=== PATIENT | female | born 1970 | race Caucasian/White ===

== ENCOUNTER 2016-10-11 14:04 | Emergency (ER) | payer OTHER ==
[~2016-10-11 14:04] MED LIST: ALBUTEROL2.5 MG/3 M INH/SOL; ATIVAN1 M1 PO; BACTRIM DS TAB1 EACH PO; CARAFATE1 GM/10 M1 PO; CIPRO500 M1 PO; DEXAMETHASONE2 M1 PO; KEFLEX500 M1 PO; MEDROL4 M2 PO; METHADONE10 MG/5 M2 PO; MORPHINE SULFAT30 M7 PO; Nebulizer machine; PAROXETINE HCL40 M1; PRAZOSIN HCL2 M1; PROAIR HFA8.5 GM INH
[2016-10-11 14:09] VITALS: BP 144/106
--- NOTE | 2016-10-11 14:19 | ED HEAD/FACIAL INJ COMPLAINT ---
History of Present Illness General Chief Complaint: Laceration Procedure Stated Complaint: LAC TO FORHEAD ABOVE LEFT EYE, DIZZY Source: patient, old records Exam Limitations: no limitations Vital Signs & Intake/Output Vital Signs & Intake/Output Vital Signs Date Time Temp Pulse Resp B/P B/P Pulse O2 O2 Flow FiO2 Mean Ox Delivery Rate 10/11 1409 97.7 81 18 144/106 97 Room Air Allergies Coded Allergies: Penicillins (PER PT UNKNOWN - WAS TOLD BAD HIVES A CHILD 01/08/16) Reconcile Medications Cephalexin (Keflex) 500 MG CAPSULE 1 CAP PO 4 TIMES/DAY foreign body Methadone HCl 10 MG/5 ML SOLUTION 65 MG PO DAILY MENTAL HEALTH (Reported) Paroxetine HCl (Unknown Strength) TABLET (Unknown Dose) UNKNOWN (Reported) Prazosin HCl (Unknown Strength) CAPSULE (Unknown Dose) UNKNOWN (Reported) Sulfamethoxazole/Trimethoprim (Bactrim Ds Tablet) 800 MG-160 MG TABLET 1 TAB PO BID infection prevention Triage Note: TRIAGE: PATIENT TO ER FROM HOME "WAS CLEANING A WINDOW AND THE GLASS FELL OUT ON ME AND SMACKED ME IN THE HEAD." 1 CM LAC NOTED TO ABOVE L EYEBROW, REPORTS +DIZZINESSAND "HAVE A MIGRAINE NOW." DENIES BLOODTHINNERS. Triage Nurses Notes Reviewed? yes Onset: Abrupt Severity: mild Severity Numbers: 4 Location: frontal Method of Injury: direct blow Loss of Consciousness: no loss of consciousness Associated Symptoms: denies HPI: 46-year-old female presents to ER for evaluation with family friends status post sustaining laceration to her left eyebrow just prior to arrival. She states that she was opening a window in an attempt to say hello to her friend outside when she states that the glass window pane fell out of the window striking her in the face. She did not fall to the ground there is a loss of consciousness. She denies any other injury. She is not taken anything. She states since then she's now complaining of a migraine-like headache and feeling dizzy. No nausea no vomiting. She denies any vision changes or eye pain. No other modifying factors or radiation of her pain She states she is up-to-date on her tetanus (RUSTY ENRIQUEZ,LYNDSEY) Past History Travel History Traveled to [place] past 21 day No Medical History Any Pertinent Medical History? 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 Granfather (Stomach Cancer). Hx Contributory? No (LYNDSEY BANDA) Review of Systems Review of Systems Constitutional: Reports: see HPI. All Other Systems: Reviewed and Negative Comments Review of systems: See HPI, All other systems negative. Constitutional, no chills no fever, no malaise HEENT: No visual changes no sore throat no congestion, Cardiovascular: No chest pain , no palpitation Skin: no rashes, no change in skin Respiratory: No dyspnea no cough no sputum GI: No nausea no vomiting, no diarrhea Muscle skeletal: No joint pain, no back pain, no neck pain, Neurologic: No numbness no headache Psych: No stress . Heme/endocrine: No bruising Immunology: No lymphadenopathy (LYNDSEY BANDA) Physical Exam Physical Exam General Appearance: well developed/nourished, alert, awake Cranial Nerves: normal hearing, normal speech, PERRL Comments: Well-developed well-nourished patient in no apparent distress. Head/Face: Superficial linear 0.5 cm laceration noted to the left lateral eyebrow is no visualized or palpated foreign body no active bleeding mild surrounding swelling and no ecchymosis no maxillary/frontal sinus tenderness, rest of the face is atraumatic Eyes: PERRL, EOMI, no conjunctival injection. No nystagmus Ear:External auditory canals clear Nose: atraumatic.Normal inspection Throat: Moist mucous membranes.Pharynx normal. No pharyngeal erythema/exudate seen. No stridor/drooling or assymetry. No swelling or edema. Neck: Supple, FROM Back: FROM Cardiovascular: Regular rate and rhythms no murmurs Respiratory: No respiratory distress. Patient speaking in full complete sentences. Breath sounds clear to auscultation bilaterally: NO W/R/R Extremities: full range of motion Neuro: awake, alert, and oriented to person, place and time. There were no obvious focal neurologic abnormalities. Skin: Warm & dry;No appreciable rash on exposed skin Psych: Mood affect normal, normal memory normal judgment. (LYNDSEY BANDA) Progress Differential Diagnosis: facial fracture, globe injury, orbit fracture, skull fracture, concussion Plan of Care: Current Medications Sig/Lyudmila Start time Last Medication Dose Stop Time Status Admin Ibuprofen 800 MG ONCE ONE 10/11 1430 UNVr (Motrin) 10/11 1431 The wound was thoroughly irrigated normal saline Betadine peroxide. Dermabond was applied discussed the patient and family plan of care they deny any change in mental status complete the patient requires any imaging at this time she is ambulatory with steady gait appears well otherwise they feel comfortable with this plan (LYNDSEY BANDA) Departure Departure Time of Disposition: 1426 Disposition: HOME OR SELF CARE Condition: Stable Clinical Impression Primary Impression: Facial laceration Secondary Impressions: Minor head injury Referrals: PATIENT HAS NO PRIMARY CARE DR (PCP/Family) Additional Instructions: rest, ice, tylenol or motrin for pain. the dermabond will dissolve on its own. return with any concerns Departure Forms: Customer Survey General Discharge Information (LYNDSEY BANDA) PA/CASE PICKER Co-Sign Statement Statement: ED Attending supervision documentation- [] I saw and evaluated the patient. I have also reviewed all the pertinent lab results and diagnostic results. I agree with the findings and the plan of care as documented in the PA's/CASE PICKER's documentation. [x] I have reviewed the ED Record and agree with the PA's/CASE PICKER's documentation. [] Additions or exceptions (if any) to the PAs/CASE PICKER's note and plan are summarized below: [] (GUMARO DAY,RAVI Lanier) Procedures Laceration/Wound Repair Laceration/Wound Repair: Wound Location: face Wound's Depth, Shape: linear, superficial Wound Length (cm): 0.5 Wound Explored: clean, no foreign body removed Irrigated w/ Saline (ccs): 100 Betadine Prep? Yes Wound Repaired With: Dermabond Tetanus Status: up to date (LYNDSEY BANDA)
== END 2016-10-11 14:45 ==
LOC: ERH 14:04
DX: S01.112A Laceration without foreign body of left eyelid and periocular area, initial encounter (principal); S09.90XA Unspecified injury of head, initial encounter; W25.XXXA Contact with sharp glass, initial encounter; Y92.9 Unspecified place or not applicable; Y93.9 Activity, unspecified

== ENCOUNTER 2016-10-12 18:10 | Emergency (ER) | payer OTHER ==
[~2016-10-12] VITALS: Ht 167.6 cm; Wt 72.6 kg
[2016-10-12 18:15] VITALS: BP 132/91
--- NOTE | 2016-10-12 18:31 | ED GENERAL ADULT ---
History of Present Illness General Chief Complaint: General Adult Stated Complaint: 104.7 FEVER, NOW 102.7 AFTER MOTRIN,HARLEY ESCAMILLA Source: patient, old records Exam Limitations: no limitations Vital Signs & Intake/Output Vital Signs & Intake/Output Vital Signs Date Time Temp Pulse Resp B/P B/P Pulse O2 O2 Flow FiO2 Mean Ox Delivery Rate 10/13 1955 99.9 90 16 99 Room Air 10/12 1906 97 Room Air 10/12 1899 102.6 10/12 181 102.6 102 18 132/91 95 Room Air ED Intake and Output 10/13 0000 10/12 1200 Intake Total Output Total Balance Patient 160 lb Weight Weight Reported by Patient Measurement Method Allergies Coded Allergies: Penicillins (PER PT UNKNOWN - WAS TOLD BAD HIVES A CHILD 01/08/16) Reconcile Medications Cephalexin (Keflex) 500 MG CAPSULE 1 CAP PO 4 TIMES/DAY foreign body Methadone HCl 10 MG/5 ML SOLUTION 65 MG PO DAILY MENTAL HEALTH (Reported) Paroxetine HCl (Unknown Strength) TABLET (Unknown Dose) UNKNOWN (Reported) Prazosin HCl (Unknown Strength) CAPSULE (Unknown Dose) UNKNOWN (Reported) Sulfamethoxazole/Trimethoprim (Bactrim Ds Tablet) 800 MG-160 MG TABLET 1 TAB PO BID infection prevention Triage Note: PT TO TRIAGE WITH C/O FEVER, WEAKNESS, MIGRAINE, CHILLS SINCE YESTERDAY. TEMP 102.7 IN TRIAGE. 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 PT WAS SEEN HERE IN ER YESTERDAY FOR LAC TO LEFT EYEBROW. Triage Nurses Notes Reviewed? yes Onset: Abrupt Duration: day(s): (1), constant Timing: recent history Injury Environment: home Severity: moderate Severity Numbers: 5 No Modifying Factors: none Associated Symptoms: HEADACHE, DIZZINESS HPI: 46-year-old male presents to the ER for evaluation complaining of fevers as high as 104 at home associated with generalized malaise and dizziness migraine headache. She states she's has a migraine since yesterday when a window screen fell on her knee sustaining a laceration for which she was seen by myself. There is no loss of consciousness at the time. There's been no change in her mental status no rashes to her skin no cough sore throat and rhinorrhea and congestion abdominal pain nausea vomiting. Patient denies any urinary complaints. She took Motrin earlier today (LYNDSEY BANDA) Past History Travel History Traveled to [place] past 21 day No Medical History Any Pertinent Medical History? 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 Granfather (Stomach Cancer). Hx Contributory? No (LYNDSEY BANDA) Review of Systems Review of Systems Constitutional: Reports: see HPI. All Other Systems: Reviewed and Negative Comments Review of systems: See HPI, All other systems negative. Constitutional, no chills fever, no malaise HEENT: No visual changes no sore throat no congestion Cardiovascular: No chest pain , no palpitation Skin: no rashes, no change in skin Respiratory: No dyspnea no cough no sputum GI: No nausea no vomiting, no diarrhea, no bloating/constipation : No dysuria No hematuria, no frequency, no discharge Muscle skeletal: No joint pain, no joint swelling, no back pain, no neck pain, Neurologic: No numbness no confusion, headache Psych: No stress Heme/endocrine: No bruising Immunology: No lymphadenopathy (LYNDSEY BANDA) Physical Exam Physical Exam General Appearance: well developed/nourished, alert, awake Neurologic/Psych: no motor/sensory deficits, awake, alert Comments: Well-developed well-nourished person in no acute distress Head/Face: laceration is intact there is no erythema there is no induration fluctuance or swelling, no maxillary/frontal sinus tenderness, no facial swelling Eyes: PERRL, EOMI, no conjunctival injection. No nystagmus Ear:External auditory canal and Tympanic membranes clear, no erythema, no FB. Nose: atraumatic.Normal inspection: No bleeding, no septal hematoma Throat: Moist mucous membranes.Pharynx normal. No pharyngeal erythema/exudate seen. No stridor/drooling or assymetry. No swelling or edema. Neck: Supple, no lymphadenopathy, FROM Back: Nontender, no CVA tenderness. Full range of motion Cardiovascular: Regular rate and rhythms no murmurs rubs or gallops, normal JVP Respiratory: Chest nontender.There were no bony deformities, no asymmetry. No respiratory distress. Patient speaking in full complete sentences. Breath sounds clear to auscultation bilaterally: NO W/R/R Abdomen: Soft, nontender nondistended, no appreciable organomegaly. Normal bowel sounds. No rebound/guarding, No ascites. Extremity: No edema, full range of motion of extremities, normal and equal pulses bilaterally, 5 out of 5 strength noted to bilateral upper and lower extremities Neuro: Alert oriented x3, motor sensory normal, cranial nerves II through XII grossly intact. There were no obvious focal neurologic abnormalities. Negative Kernig's sign no meningeal signs Skin: No appreciable rash on exposed skin, skin is warm and dry. Psych: Mood and affect is normal, memory and judgment is normal. Core Measures ACS in differential dx? No CVA/TIA Diagnosis: No Severe Sepsis Present: No Septic Shock Present: No (RUSTY ENRIQUEZ,LYNDSEY) Progress Differential Diagnoses I considered the following diagnoses in my evaluation of the patient: VIRAL syndrome, INFLUENZA sinusitis dehydration electrolyte abnormality pneumonia bronchitis UTI meningitis encephalitis Plan of Care: Orders Procedure Date/time Status BLOOD CULTURE 10/12 1838 Active Saline Lock 10/13 1831 Active LYME TITRE 10/13 1831 Active COMPREHENSIVE METABOLIC PANEL 10/13 1831 Complete CBC WITHOUT DIFFERENTIAL 10/13 1831 Complete Laboratory Tests 10/12/16 1850: Anion Gap 11, Estimated GFR > 60, BUN/Creatinine Ratio 11.3, Glucose 89, Calcium 9.0, Total Bilirubin 0.4, AST 31, ALT 45, Alkaline Phosphatase 76, Total Protein 6.6, Albumin 3.8, Globulin 2.8, Albumin/Globulin Ratio 1.4, CBC w Diff MAN DIFF ORDERED, RBC 4.49, MCV 84.3, MCH 27.7, RDW 14.7 H, MPV 9.6, Gran % 93.7 H, Lymphocytes % 4.8 L, Monocytes % 1.1 L, Eosinophils % 0.4, Basophils % 0 L, Absolute Granulocytes 7.3 H, Segmented Neutrophils 67, Band Neutrophils 22 H, Absolute Lymphocytes 0.4 L, Lymphocytes 7 L, Monocytes 2, Absolute Monocytes 0.1 L, Eosinophils 1, Absolute Eosinophils 0, Absolute Basophils 0, Metamyelocytes 1, Platelet Estimate ADEQUATE, Hypochromic-Microcytic 1+, Anisocytosis 1+, PUBS MCHC 32.8 L, Lyme Disease Antibody Pending 10/12/16 1832: Urine Color Cancelled, Urine Clarity Cancelled, Urine pH Cancelled, Ur Specific [place] Cancelled, Urine Protein Cancelled, Urine Ketones Cancelled, Urine Nitrite Cancelled, Urine Bilirubin Cancelled, Urine Urobilinogen Cancelled, Ur Leukocyte Esterase Cancelled, Ur Microscopic Cancelled, Urine Hemoglobin Cancelled, Urine Glucose Cancelled, Urine Test Cancelled Microbiology 10/12 1914 BLOOD: Blood Culture - RECD 10/12 1899 BLOOD: Blood Culture - RECD LABS ORDERED, OLD RECORDS REVIEWED. PT MED WITH TYLEONOL PO, TORADOL 30MG IV, IV FLUIDS. CASE D/W DR GLEZ PT RESTING IN NAD, NONTOXIC APPEARING, again no meningeal signs, neg kernigs sign. d/w the pt her lab results, need for close f/u with her pmd tomorrow, clear liquids, tylenol or motrin every 4-6 hours as needed for pain/fever, chills. 10/12/2016 8:06:29 PM pt stated to nursing that she wanted to sign out ama bc she wanted to go home into her own bed. I discussed with the patient at length all of their results. no clear source of fever at this time, will abstain from abx at this time for that reason, pts fever howevr responded with po tyleonl iv toradol. I had an extensive conversation regarding need for close follow up with their primary care physician this week as well as return precautions. I answered all of their questions, they feel comfortable with the plan and follow-up care. (LYNDSEY BANDA) Initial ED EKG: none (LYNDSEY BANDA) Departure Departure Time of Disposition: 2001 Disposition: HOME OR SELF CARE Condition: Stable Clinical Impression Primary Impression: Viral syndrome Secondary Impressions: Fever Referrals: PATIENT HAS NO PRIMARY CARE DR (PCP/Family) Additional Instructions: DRINK PLENTY OF FLUIDS, TYLENOL OR MOTRIN EVERY 4-6 HOURS FOR YOUR FEVER OR HEADACHE. FOLLOW UP WITH UP PMD TOMORROW, RETURN IMMEDIATLEY IF YOUR SYMPTOMS WORSEN, YOU HAVE PERSISENT FEVERS DESPITE MEDCIATION OR YOU HAVE ANY OTHER CONCERNS Departure Forms: Customer Survey General Discharge Information (LYNDSEY BANDA) PA/EMERGENCY MEDICAL TECHNICIAN BASIC Co-Sign Statement Statement: ED Attending supervision documentation- [] I saw and evaluated the patient. I have also reviewed all the pertinent lab results and diagnostic results. I agree with the findings and the plan of care as documented in the PA's/EMERGENCY MEDICAL TECHNICIAN BASIC's documentation. [x] I have reviewed the ED Record and agree with the PA's/EMERGENCY MEDICAL TECHNICIAN BASIC's documentation. [] Additions or exceptions (if any) to the PAs/EMERGENCY MEDICAL TECHNICIAN BASIC's note and plan are summarized below: [] (NEWTON DAY,BRIGHT Andrea) Critical Care Note Critical Care Note Critical Care Time: non-applicable (LYNDSEY BANDA)
[2016-10-12 19:08] LABS: ABSOLUTE BASOPHIL COUNT 0 /CUMM (0.0-0.2); ABSOLUTE EOSINOPHIL COUNT 0 /CUMM (0.0-0.7); ABSOLUTE GRANULOCYTE CT 7.3 /CUMM (1.4-6.5); ABSOLUTE LYMPH COUNT 0.4 /CUMM (1.2-3.4); ABSOLUTE MONOCYTE COUNT 0.1 /CUMM (0.10-0.60); BASOPHIL % 0 % (0.0-2.0); EOSINOPHIL % 0.4 % (0-5); GRANULOCYTE % 93.7 % (42.2-75.2); HEMATOCRIT 37.9 % (37-47); MEAN CORPUSCULAR HGB 27.7 PG (27.0-31.0); MEAN CORPUSCULAR HGB CONC 32.8 G/DL (33.0-37.0); MEAN CORPUSCULAR VOLUME 84.3 FL (81.0-99.0); MEAN PLATELET VOLUME 9.6 FL (7.4-10.4); PLATELET COUNT 187 /CUMM (130-400); RBC DISTRIBUTION WIDTH 14.7 % (11.5-14.5); RED BLOOD CELL CT 4.49 /CUMM (4.20-5.40); WHITE BLOOD CELL COUNT 7.8 /CUMM (4.8-10.8)
== END 2016-10-12 20:07 ==
LOC: ERH 18:10
PROVIDERS: Physician Assistant Medical
DX: B34.9 Viral infection, unspecified (principal); R50.9 Fever, unspecified; R42 Dizziness and giddiness
CPT/HCPCS: 86618; 81025; 87040; 96361; 96374; 99291; J1885

== ENCOUNTER 2017-09-08 20:05 | Emergency (ER) | payer OTHER ==
[~2017-09-08] VITALS: Ht 170.2 cm; Wt 65.8 kg
[2017-09-08 20:10] VITALS: BP 130/91
== END 2017-09-08 23:55 | disposition admitted as inpatient to this hospital (09) ==
LOC: ERH 20:05
DX: R30.0 Dysuria (principal); R31.9 Hematuria, unspecified
CPT/HCPCS: 81003; 87086; 87491; 87591; 99281